=== PATIENT | female | born 1965 | race Caucasian/White ===

== ENCOUNTER 2020-12-03 10:27 | Outpatient (REF) | payer OTHER, SELFPAY ==
[2020-12-06 13:55] LABS: TS Negative Control Passed; TS Panel A 0; TS Panel B 1; TS Positive Control Passed; TSpotTB Negative (SeeBelow)
== END 2020-12-03 10:28 | disposition home or self-care (01) ==
LOC: HO.MANLDS 10:27
PROVIDERS: PCP Physician Assistant; Visit Provider Physician Assistant
DX: Z11.1 Encounter for screening for respiratory tuberculosis (principal)
CPT/HCPCS: 36415; 86481

== ENCOUNTER 2020-12-15 15:08 | Outpatient (REF) | payer OTHER, SELFPAY | END 2020-12-15 15:09 | disposition home or self-care (01) | LOC: HO.MANLDS 15:08 | PROVIDERS: PCP Physician Assistant; Visit Provider Physician Assistant | DX: Z01.84 Encounter for antibody response examination (principal) | CPT/HCPCS: 36415; 86787 ==

== ENCOUNTER 2022-03-12 11:44 | Outpatient (REF) | payer OTHER, SELFPAY ==
[2022-03-12 14:13] LABS: MANUAL DIFF FLAG NO
[2022-03-12 14:22] LABS: Basophils Percent Auto 0.5 % (0-2); Eosinophils Absolute Auto 0.1 X10*3/uL (0.0-0.4); Eosinophils Percent Auto 1.2 % (0-4); Hematocrit 40.4 % (37.0-47.0); Imm Gran Abs Auto 0.02 X10*3/uL (0.00-0.03); Imm Gran Pct Auto 0.2 % (0.0-0.4); Lymphocytes Absolute Auto 1.9 X10*3/uL (1.2-4.9); Lymphocytes Percent Auto 22.7 % (20-40); Mean Corpuscular HGB Conc 32.2 g/dl (31.0-35.0); Mean Corpuscular Hemoglobin 29.1 pg (27.0-33.0); Mean Corpuscular Volume 90.4 fL (80.0-98.0); Mean Platelet Volume 11.7 fL (9.4-12.3); Monocytes Absolute Auto 0.6 X10*3/uL (0.1-1.2); Monocytes Percent Auto 7.1 % (2-11); Neutrophils Absolute Auto 5.6 x10*3/uL (2.0-8.3); Neutrophils Percent Auto 68.3 % (45-73); Platelet Count 271 X10*3/uL (160-400); Red Blood Count 4.47 X10*6/uL (4.20-5.50); Red Cell Distribution Width 13.3 % (11.0-16.0); White Blood Count 8.2 X10*3/uL (4.8-10.8)
[2022-03-12 14:43] LABS: Anion Gap 13 (12-20)
[2022-03-12 14:48] LABS: Carbon Dioxide 25 mmol/L (22-29)
[2022-03-12 14:53] LABS: Alanine Aminotransferase 12 U/L (0-31); Alkaline Phosphatase 76 U/L (39-117); Aspartate Amino Transferase 19 U/L (5-31); Bilirubin Total 0.9 mg/dL (0.0-1.0); Blood Urea Nitrogen 17 mg/dL (9-16); Calcium 9.2 mg/dL (8.4-10.2); Chloride 104 mmol/L (96-108); Cholesterol 217 mg/dL; Estimated Glomerular Filt Rate > 60; Glucose Random 90 mg/dL (60-115); HDL Cholesterol 63 mg/dL; LDL Cholesterol Calculated 140 mg/dl; Potassium 4.4 mmol/L (3.3-5.1); Sodium 138 mmol/L (135-145); Total Protein 6.7 g/dL (6.5-8.0); Triglycerides 74 mg/dL
[2022-03-12 15:10] LABS: Free T4 (Free Thyroxine) 0.93 ng/dL (0.71-1.85); Thyroid Stimulating Hormone 0.43 uIU/mL (0.32-4.0)
== END 2022-03-12 11:45 | disposition home or self-care (01) ==
LOC: HO.MANLDS 11:44
PROVIDERS: Visit Provider Physician Assistant
DX: I10 Essential (primary) hypertension (principal)
CPT/HCPCS: 36415; 80053; 80061; 84439; 84443; 85025

== ENCOUNTER 2024-04-25 11:38 | Outpatient (REF) | payer OTHER, SELFPAY ==
[2024-04-25 13:37] LABS: Appearance Urine Cloudy; Color Urine Yellow; Glucose Urine UA Negative (Negative); Leukocyte Esterase Urine Large (3+) (Negative); Nitrite Urine Positive (Negative); UMIC TRIGGER UACC YES; Urine Blood Trace (Negative); Urine Ketones Negative (Negative); Urine Protein Negative (Neg-Trace)
[2024-04-25 13:42] LABS: Bacteria Urine 4+ (None Seen); RBC Urine 0-2 /HPF (0-2); Squamous Epithelial Cell Urine 0-2 /HPF (0-2); UACC Culture Trigger YES; WBC Urine >50 /HPF (0-5)
--- OUTSIDE RECORDS SUMMARY | 2024-04-25 14:41 | XMS_ITS | Data Portability ---
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) MDM MODERATE MUST MEET 2 OUT OF 3 ELEMENTS: PROBLEMS, DATA OR RISK ELEMENT 1: PROBLEMS ADDRESSED OR 2 OR MORE STABLE CHRONIC ILLNESSES OR OR OR ELEMENT 2: DATA MUST MEET 1 OF 3 CATEGORIES CATEGORY 1: REVIEW OF PRIOR EXTERNAL NOTES, REVIEW OF RESULTS, ORDERING OF EACH TEST, ASSESSMENT REQUIRING INDEPENDENT HISTORIAN OR CATEGORY 2: OR CATEGORY 3: ELEMENT 3: RISK RISK OF COMPLICATIONS AND/OR MORBIDITY OR MORTALITY OF PATIENT MANAGEMENT PROVIDER MUST THOROUGHLY DOCUMENT EACH ELEMENT THAT IS COVERED [email or web address] Not available 07/07/2020 10:35:24 Plan of Treatment Reminders Order Date Submit Date Provider Last Modified By Organization Details Last Modified Time Details Appointments None recorded. Lab urinalysis complete, reflex culture 2023 024 [facility], [address] [place] [address], [address], 4 07:54:22 urinalysis , dipstick 2023 024 [facility], [address] [facility] [facility] [address], [place], [address], 4 11:46:31 CMP, serum or plasma 2022 023 [facility], [address] [place] [address], [address], 3 11:35:15 lipid panel, blood 2022 023 [facility], [address] [facility], [place], [address], 3 11:35:15 CBC w/ auto diff 2022 023 [facility], [address] [facility], [place], [address], 3 11:35:15 TSH + free T4, serum 2022 023 [facility], [address] [facility], [place], [address], 3 11:35:15 CMP, serum or plasma 2020 021 [email or web address] Not available 1 10:33:16 CBC w/ auto diff 2020 021 [email or web address] Not available 1 10:33:16 lipid panel, blood 2020 021 [email or web address] Not available 1 10:33:16 CBC w/ auto diff 2019 020 TRISHA Not available 0 09:00:36 Referral None recorded. Procedures None recorded. Surgeries None recorded. Imaging XR, ribs, unilateral 2019 020 TRISAH Not available 0 15:01:20 electrocar diogram 2019 020 [email or web address] [facility], [address] [facility], [address], [place], [address], 0 12:07:02 XR, chest, 2 view 2019 020 TRISHA Not available 0 14:49:18 Medication Orders sulfametho xazole 800 mg-trimeth oprim 160 mg tablet 2023 025 TRISHA [facility], [address] [place], [address], 5 12:32:47 epinephrin e 0.3 mg/0.3 mL injection, auto-injec tor 2022 023 [email or web address] [facility], [address] [place] [address], [address], 3 08:53:06 valacyclov ir 1 gram tablet 2020 021 jbigda [facility], [address] [place], [address], 3 12:24:12 lisinopril 20 mg tablet 2020 021 rtryba [facility], [address] [place] [address], [address], 1 10:33:16 epinephrin e 0.3 mg/0.3 mL injection, auto-injec tor 2020 021 rtryba [facility], [address] [place], [address], 3 08:53:06 Patient TargetsNo targets recorded. Patient Instructions Encounter Date Encounter Id Patient Instructions Last Modified By Organization Details Last Modified Time 03/30/2019 [id number] learning about high white blood cell counts Not available 03/30/2019 12:03:39 anaphylactic reaction: care instructions Not available 03/30/2019 11:59:14 Reason for Referral None Reported. Results Created Date Observation Date Name Description Value Unit Range Abnormal Flag Note LastModifiedBy Organization Detail LastModifiedTime 03/30/19 20 03/30/2019 martha ojeda am Rate & Rhythm 72 Not Available [facility] [address] [facility] [address], [place], [address], 03/30/2019 11:56:48 03/30/1903/30/2019 elect rocar diogr am QRS 88 Not Available [facility] [address] [facility], [place], [address], 03/30/2019 11:56:48 03/30/19 20 03/30/2019 elect rocar diogr am NV Interval 144 Not Available [facility] [address] [facility], [place], [address], 03/30/2019 11:56:48 03/30/19 20 03/30/2019 elect rocar diogr am QRS Duration 88 Not Available [facility] [address] [facility], [place], [address], 03/30/2019 11:56:48 03/30/19 20 03/30/2019 elect rocar diogr am QT Interval 394/43 1 Not Available [facility] [address] [facility], [place], [address], 03/30/2019 11:56:48 09/28/19 24 09/28/2023 urina lysis , dipst ick Leukocytes Modera te Not Available [address], [place], [address], 09/28/2023 11:42:23 09/28/19 24 09/28/2023 urina lysis , dipst ick Nitrite positi ve Not Available [facility] [address] [facility], [place], [address], 09/28/2023 11:42:23 09/28/19 24 09/28/2023 urina lysis , dipst ick Urobilinogen 1 Not Available [facility] [address] [facility], [place], [address], 09/28/2023 11:42:23 09/28/19 24 09/28/2023 urina lysis , dipst ick Protein Negati ve Not Available [facility] [address] [facility], [place], [address], 09/28/2023 11:42:23 09/28/19 24 09/28/2023 urina lysis , dipst ick pH 6.0 Not Available [facility] [address] [facility] [address], [place], [address], 09/28/2023 11:42:23 09/28/19 24 09/28/2023 urina lysis , dipst ick Blood Small Not Available [facility] [address] [facility] [address], [place], [address], 09/28/2023 11:42:23 09/28/19 24 09/28/2023 urina lysis , dipst ick Specific [place] 1.010 Not Available [facility] [address] [facility] [address], [place], [address], 09/28/2023 11:42:23 09/28/19 24 09/28/2023 urina lysis , dipst ick Ketone Negati ve Not Available [facility] [address] [facility] [address], [place], [address], 09/28/2023 11:42:23 09/28/19 24 09/28/2023 urina lysis , dipst ick Bilirubin Negati ve Not Available [facility] [address] [facility] [address], [place], [address], 09/28/2023 11:42:23 09/28/19 24 09/28/2023 urina lysis , dipst ick Glucose Negati ve Not Available [facility] [address] [facility] [address], [place], [address], 09/28/2023 11:42:23 09/28/19 24 09/28/2023 urina lysis , dipst ick Appearance Cloudy Not Available [facility] [address] [facility] [address], [place], [address], 09/28/2023 11:42:23 09/28/19 24 09/28/2023 urina lysis , dipst ick Color [place] Not Available [facility] [address] [facility] [address], [place], [address], 09/28/2023 11:42:23 03/30/19 20 03/30/2019 XR, chest , 2 view No observ ation record ed. [address], [address], 03/30/2019 15:48:04 03/30/19 20 03/30/2019 XR, ribs, unila teral No observ ation record ed. [address], [address], 03/30/2019 15:48:04 04/03/19 21 04/03/2020 MAMMO , scree jose, bilat eral No observ ation record ed. [facility] [employer] [address] [facility], [place], [address], 04/04/2020 07:54:54 04/06/19 22 04/06/2021 MAMMO , scree jose, digit al, bilat eral No observ ation record ed. [facility] [address] [facility], [place], [address], 04/06/2021 10:57:20 04/16/19 23 04/15/2022 MAMMO , scree jose, digit al, bilat eral No observ ation record ed. [email or web address] [facility] [address] [place] [address], [address], 04/16/2022 13:41:26 04/17/19 25 04/13/2024 CT, coron monica calci um score No observ ation record ed. [facility] [address] [facility] [place], [address], 04/17/2024 16:44:12 Result Notes None recorded. Problems Name Problem SNOMED Code Status Onset Date Resolution Date Notes Provider Name and Address Organization Details Recorded Time Essential hypertensi on 95363927 Active 2017 Not Available [facility] 2 11:57:55 Herpes labialis 6517388 Active 2017 Not Available [facility] 2 11:57:56 Basal cell carcinoma of skin 632467882 Active 2017 Not Available [facility] 2 11:57:55 Acute bronchitis 72496999 Active 2022 SUMAYA SETHI [address] [place] [address], [address], [facility] 3 15:21:00 Vasovagal syncope 013160847 Active 2022 SUMAYA SETHI [address] [place] [address], [address], [facility] 3 16:16:22 Dysuria 74630838 Active 2023 SUMAYA SETHI [address] [place] [address], [address], [facility] 4 11:58:00 Diarrhea 78536176 Active 2023 SUMAYA SETHI [address] [place] [address], [address], [facility] 4 13:16:56 Hyperchole sterolemia 50709518 Active 2024 SUMAYA SETHI [address] [place] [address], [address], [facility] 5 16:44:38 Hyperlipid emia 13688905 Active 2024 SUMAYA SETHI [address] [place] [address], [address], [facility] 5 09:17:24 Problem Notes None recorded. Procedures Surgical History Date Name Laterality Status Provider Name and Address Organization Details Recorded Time 07/02/19 17 Colonoscopy completed Nicole Jaquez [facility] 04/21/2018 16:46:07 11/06/19 16 Most Recent Mammogram completed Nicole Jaquez [facility] 04/21/2018 16:47:01 repair of stress incontinence by suprapubic sling completed SUMAYA SEHTI [address] [facility], [place], [address], [facility] 03/12/2022 11:31:50 Imaging Results Imaging Date Name Status LastModified by Organiz ation Details LastModified Time 03/30/2019 XR, chest, 2 view completed [address], [address], 03/30/2019 15:48:04 03/30/2019 XR, ribs, unilateral completed [address], [address], 03/30/2019 15:48:04 04/03/2020 MAMMO, screening, bilateral completed [facility] [employer] [address] [facility], [place], [address], 04/04/2020 07:54:54 04/06/2021 MAMMO, screening, digital, bilateral completed [facility] [address] [place], [address], 04/06/2021 10:57:20 04/15/2022 MAMMO, screening, digital, bilateral completed [email or web address] [facility] [address] [place] [address], [address], 04/16/2022 13:41:26 04/13/2024 CT, coronary calcium score completed [facility] [address] [facility] [address], [place], [address], 04/17/2024 16:44:12 Procedure Notes None recorded. Medical Equipment None Reported. Allergies Allergen ID Allergen Name Allergen Category Reaction Reaction Severity Criticality Documentation Date Start Date Code Code System Note Provider Name and Address Organization Details Recorded Time 4477 shellfish derived food,medi cation anaphylax is severe Not available 07/07/2020 [id number] SUMAYA ARMENDARIZ [address] [place], [address], [facility] 10:27:54 Medications Name Sig Start Date Stop Date Status Note LastModified by Organization Details LastModified Time doxycycline hyclate 100 mg capsule TAKE 1 CAPSULE BY MOUTH TWICE A DAY 09/27 completed Not Available Not Available Not Available azithromyci n 250 mg tablet TAKE 2 TABLETS BY MOUTH TODAY, THEN TAKE 1 TABLET DAILY FOR 4 DAYS 08/24 completed Not Available Not Available Not Available ibuprofen 800 mg tablet Take 1 tablet 3 times a day by oral route as needed for 10 days. 07/07 completed Not Available Not Available Not Available valacyclovi r 1 gram tablet TAKE 1 TABLET BY MOUTH TWICE A DAY FOR 10 DAYS active Not Available Not Available No t Available epinephrine (Jr) 0.15 mg/0.3 mL injection,a uto-injecto r 0.15 mg SC/IM x1; Info: may repeat dose x1 after 5-15min 03/26 completed Not Available Not Available Not Available atovaquone 250 mg-proguani l 100 mg tablet Take 1 tablet every day by oral route as directed for 2 days, for malaria preventio n, only take one 1 to 2 days prior to arriving in [facility] on. active Not Available Not Available No t Available lisinopril 20 mg tablet TAKE 1 TABLET DAILY active Not Available Not Available No t Available fluorouraci l 5 % topical cream 03/30 completed Not Available Not Available Not Available tretinoin 0.05 % topical cream 03/12 completed Not Available Not Available Not Available sulfamethox azole 800 mg-trimetho prim 160 mg tablet TAKE 1 TABLET BY MOUTH EVERY 12 HOURS FOR 7 DAYS 03/30 completed Not Available Not Available Not Available Imodium A-D 2 mg tablet Take 1 tablet 3 times a day by oral route as needed for 7 days. 2023 active Not Available Not Available Not Avai lable simvastatin 20 mg tablet Take 1 tablet every day by oral route for 30 days. 2024 active Not Available Not Available Not Avai lable hydrochloro thiazide 25 mg tablet Take one tablet twice a day 01/18 completed Not Available Not Available Not Available epinephrine 0.3 mg/0.3 mL injection, auto-inject or USE DIRECTED FOR ANAPHYLAX IS THEN CALL 911 active Not Available Not Available No t Available estradiol 0.01% (0.1 mg/gram) vaginal cream APPLY 1 GM VAGINALLY EVERY TUESDAY AND TUESDAY active Not Available Not Available No t Available methylpredn isolone 4 mg tablets in a dose pack TAKE 6 TABLETS ON DAY 1 DIRECTED ON PACKAGE AND DECREASE BY 1 TAB EACH DAY FOR A TOTAL OF 6 DAYS 08/24 completed Not Available Not Available Not Available nitrofurant oin monohydrate /macrocryst als 100 mg capsule 11/14 completed Not Available Not Available Not Available M-M-R II (PF) 1,000-12,50 0 TCID50/0.5 mL subcutaneou s solution 03/30 completed Not Available Not Available Not Available Afluria Qd 2018- (36 mos up)(PF)60 mcg (15 mcg x4)/0.5 mL IM syringe 03/30 completed Not Available Not Available Not Available Vitals Date Recorded Body height Body mass index (BMI) Body weight Heart rate Oxygen saturation Oxygen saturation in Arterial blood by Pulse oximetry Systolic blood pressure Diastolic blood pressure Provider Name and Address Organization Details Last Updated DateTime 0 168.91 cm 27 kg/m2 65384.7 g 84 /min 99 % 99 % 124 mm[Hg] 80 mm[Hg] Renea Sanderson [facility] 0 11:36:59 Date Recorded Body height Body mass index (BMI) Body weight Oxygen saturation Oxygen saturation in Arterial blood by Pulse oximetry Heart rate Systolic blood pressure Diastolic blood pressure Provider Name and Address Organization Details Last Updated DateTime 1 168.91 cm 26.6 kg/m2 66984.9 3 g 98 % 98 % 70 /min 122 mm[Hg] 80 mm[Hg] Beverly Palmer [facility] 1 10:25:33 Date Recorded Body height Body mass index (BMI) Body weight Oxygen saturation Oxygen saturation in Arterial blood by Pulse oximetry Heart rate Systolic blood pressure Diastolic blood pressure Provider Name and Address Organization Details Last Updated DateTime 3 168.91 cm 27.8 kg/m2 38060.9 5 g 98 % 98 % 71 /min 100 mm[Hg] 70 mm[Hg] Yuly Brown [facility] 3 11:20:16 Date Recorded Body height Body mass index (BMI) Body weight Heart rate Oxygen saturation Oxygen saturation in Arterial blood by Pulse oximetry Systolic blood pressure Diastolic blood pressure Provider Name and Address Organization Details Last Updated DateTime 3 168.91 cm 27.7 kg/m2 65158.0 7 g 69 /min 98 % 98 % 120 mm[Hg] 80 mm[Hg] Regi Montenegro [facility] 3 15:54:02 Date Recorded Body height Body mass index (BMI) Body weight Heart rate Oxygen saturation Oxygen saturation in Arterial blood by Pulse oximetry Systolic blood pressure Diastolic blood pressure Provider Name and Address Organization Details Last Updated DateTime 4 167.64 cm 27.5 kg/m2 75020.5 g 72 /min 98 % 98 % 122 mm[Hg] 72 mm[Hg] Chuck Dinah [facility] 4 11:45:30 Social History Question Answer Notes LastModified by Organizat ion Details LastModified Time Tobacco Smoking Status Never Smoker Not Available [facility] 01/01/2020 03:36:24 What Was The Date Of Your Most Recent Tobacco Screening? 09/28/2023 [email or web address] Information not available 09/28/2023 Do You Or Have You Ever Used Any Other Forms Of Tobacco Or Nicotine? No [email or web address] Information not available 08/24/2022 Sex: Unknown Functional Status None recorded. Mental Status None recorded. Family History Nothing Reported. Medical History No medical history recorded. Gynecological History Statement/Question Response Most Recent Mammogram 11/06/2015 Obstetrics History GPAL:G 0 P 0 0 0 0 Immunizations Vaccine Type Date Status Note Provider Nam e and Address Organization Details Recorded Time zoster recombinant 2 completed Not Available [facility] 11/22/2022 14:05:36 COVID-19, mRNA, LNP-S, PF, 50 mcg/0.5 mL dose 1 completed Not Available [facility] 11/22/2022 14:05:36 COVID-19, mRNA, LNP-S, PF, 50 mcg/0.5 mL dose 1 completed Not Available [facility] 11/22/2022 14:05:36 COVID-19, mRNA, LNP-S, PF, 30 mcg/0.3 mL dose 1 completed Not Available [facility] 11/22/2022 14:05:36 COVID-19, mRNA, LNP-S, PF, 30 mcg/0.3 mL dose 2 completed Not Available [facility] 11/22/2022 14:05:36 MMR 9 completed Not Available [facility] 11/22/2022 14:05:36 MMR 0 completed Not Available [facility] 11/22/2022 14:05:36 influenza, unspecified formulation 0 completed Not Available [facility] 11/22/2022 14:05:36 influenza, unspecified formulation 1 completed Not Available [facility] 11/22/2022 14:05:36 influenza, unspecified formulation 2 completed Not Available [facility] 11/22/2022 14:05:36 Past Encounters Encounter ID Performer Location Encounter Start Date Encounter Closed Date Diagnosis/Indication Diagnosis SNOMED-CT Code Diagnosis ICD10 Code Diagnosis Note [id number] Yasmin Emil [facility] [address] [facility] [address] 11/14/2017 14:59:10 11/14/2017 15:36:53 Essential hypertension 62942922 I10 not well controlled will d/c hctz work on sodium intake weight loss discussed Headache 56351420 R51 likely related to htn [id number] Yasmin Emil [facility] [address] [facility], [place] [address] 01/18/2018 09:59:01 01/18/2018 12:14:21 Essential hypertension 83067597 I10 well controlled with lisin- will continue Headache 42356748 R51 have resolved [id number] Yasmin Emil [facility] [address] [facility] [address] [address] 04/24/2018 09:06:49 04/24/2018 11:25:14 Adult health examination 241593080 Z00.00 had labs at work will fax us Active or passive immunization 105208669 Z23 Body mass index 25-29 - overweight 206400851 Z68.27 Essential hypertension 08787230 I10 well controlled with lisin- will continue [id number] May NEYMAR Stein [facility] [address] [facility] [address], [place] [address] 03/30/2019 11:28:55 03/30/2019 12:07:01 Anaphylaxis 68289263 T78.2XXA Rib pain 613361579 R07.8 1 Leukocytosis 685275611 D 72.829 [id number] SUMAYA SETHI [facility] [address] [facility] [address], [place] [address] 07/07/2020 10:18:59 07/07/2020 11:44:32 Essential hypertension 33876451 I10 stable, will submit refill Anaphylaxi s caused by shellfish 343743342 T78.02XS will fu with refill Herpes labialis 5766258 B00.1 stable [id number] SUMAYA SETHI [facility] [address] [facility] [address] [address] 03/12/2022 11:13:08 03/16/2022 08:37:59 Anaphylaxis caused by shellfish 244467653 T78.02XS will fu with refill Essential hypertension 03361879 I10 stable, will submit refill [id number] SUMAYA SETHI [facility] [address] [facility] [address],[place] [address] 08/24/2022 15:45:43 08/25/2022 09:13:11 Vasovagal syncope 314908624 R55 resolved Essential hypertension 02729393 I10 BP is excellent [id number] SUMAYA SETHI [facility] [address] [facility] [address],[place] [address] 09/28/2023 11:35:04 10/03/2023 09:03:19 Depression screening 332649930 Z13.31 negative Dysuria 07596658 R30.0 will start on medication Health Concerns Section Related Observation LastModified by Organization Detai ls LastModified Time None Recorded Concern Status LastModified by Organization Details LastModified Time None Recorded Advance Directives Directive None Recorded Payers Encounter Date Sequence Insurance Name Policy Number Policy Adame Covered Member ID Adame Member ID Guarantor Name 03/30/2019 1 [employer]) [id number] Anette A Olmedo [id number] Anette A Olmedo 07/07/2020 1 [employer]) [id number] Anette A Olmedo [id number] Antete A Olmedo 03/12/2022 1 [employer]) [id number] Anette A Olmedo [id number] Anette A Olmedo 08/24/2022 1 [employer]) [id number] Anette A Olmedo [id number] Anette A Olmedo 09/28/2023 1 [employer]) [id number] Anette A Olmedo [id number] Anette A Olmedo Notes Date Note Type Note Provider Name and Address Organization Details Recorded Time 0 text/html ate shrimp, developed abdominal cramping, went to the bathroom, nothing came out, started walking again, felt chest pain, tried to go to the bathroom again but nothing came out, went home and collapsed, then woke up and called 911, ambulance came in and did ekg and BP was low pt was in and out of consciousness, developed a rash all over her body, gave epi pen and responded well to this. in ER was given steroid and albuterol because she couldn't breath. she was having diarrhea uncontrollably. they believed she was having an anaphylactic reaction because of her response to epi pen. they also did troponins and everything was normal. she had a skin treatment and had a reaction. since the incident she is still having rib pain on the right side. she had a cxr in the ER and it was normal. 12 system ROS negative except where noted above May NEYMAR Stein [address] [facility], [place], [address], [facility] 03/30/2019 12:05:31 1 text/html medication fu BP: today in the office the patient BP is 122/80 the patient is doing well on the BP medication with no side effects and no adjustment of their medications needed today at the appointment well-controlled on medication denies chest pain, sob, ankle swelling, orthopnea, palpitations the patient is otherwise stable will give patient labs for recheck before fu appt SUMAYA SETHI [address] [place], [address], [facility] 07/07/2020 10:35:36 3 text/html f/u medication check HTN: today in the office the patient BP is 100/70 L arm sitting (takes her lisinopril every other day due to low low BP, will just adjust her medication)the patient is doing well on the BP medication with no side effects and no adjustment of their medications needed today at the appointmentwell-control led on medicationdenies chest pain, sob, ankle swelling, orthopnea, palpitations needs epipen SUMAYA SETHI [address] [place], [address], [facility] 03/12/2022 11:38:14 3 text/html ER F/U the patient reports that she lost consciousnessas per patient she was outside drinking alcohol most of the day at a family event, not enough water and also having diarrhea and emesis > most likely related to her vasovagal syncope related to dehydrationher BP was very lowwas on lisinopril d/c since her BP was very lowBP is appropriate ER evaluation was unremarkablewill have her monitor BP at home to see if it starts to go up again otherwise no other symptoms SUMAYA SETHI [address] [place], [address], [facility] 08/24/2022 16:20:25 4 text/html c/o urinary frequency the patient is having urinary symptoms including frequency, burning and feeling of incomplete voidingthe patient is doing well otherwisecurrently taking AZOwill send out urine SUMAYA SETHI [address] [place], [address], [place] [facility] 09/28/2023 12:13:16 OBGyn Episode No OBEpisode recorded.
--- OUTSIDE RECORDS SUMMARY | 2024-04-25 14:41 | XMS_ITS | Continuity of Care Document ---
Author Organization [facility] Address [address] [place] [address]- Care Team Providers Care Athletics Director Name Role Phone Elliot Rosario DO Primary Care Physician [phone] Encounter 04/13/24 - 04/20/24 [facility] [address], [address] [place] [address]- Attending Physician: Sudha Mcmanus Admitting Physician: Sudha Mcmanus Referring Physician: Sudha Mcmanus Encounter Type: OutPatient One Time Allergies, Adverse Reactions, Alerts Substance Criticality Severity Reaction Reaction Severity Status shellfish Anaphylaxis Active Medications Estrace Vaginal Cream 0.1 mg/g = 1 Gm, Vaginally, Every Tuesday and , # 42.5 Gm, 4 Refills, Maintenance, 07/06/23 9:42:00 AM EDT, [facility]/pharmacy #[id number], Partial fill upon patient request if the prescription is for a schedule II opioid drug., 170, cm, 07/23/22 15:51:00 EDT, Height, 80.3, kg, 11/17/21 8:58:00 EDT, Dry Weight Start Date: 07/06/23 Status: Ordered Quantity: 42.5 Unit: g Repeat number: 5 Lisinopril = 10 mg, By Mouth, Daily, 0 Refills, Maintenance, 10/21/20 6:14:00 PM EDT, Partial fill upon patientrequest if the prescription is for a schedule II opioid drug. Start Date: 10/21/20 Status: Ordered Repeat number: 1 Results Radiology Reports * Exam Date Time Procedure Performing Provider Status 04/13/24 2:[address] Heart W/O Dye [place] , Er ic; Auth (Verified) Notes: (CT Heart W/O Dye Salvador Eval) Reason For Exam: Z82.49 FAMILY HX HD RESULT: CT Heart W/O Dye Salvador Eval CT Heart W/O Dye Salvador Eval INDICATION: Reason: Z82.49 FAMILY HX HD; Clinical Question(s): Other:. Female of age 58 , race White COMPARISON: None TECHNIQUE: Coronary artery Calcium Scoring. After a localizing senior oracle dba image was obtained, an ECG-gated noncontrast exam was obtained of the heart in late diastole. The region of interest was limited to the heart in order to optimize image quality. Weight-based protocol using automatic tube modulation was used to optimize exposure parameters. A [employer] 64 scanner was used, with Agatston scoring performed using TRAFI (CatchThatBus) web-based software. This procedure is not being performed on thispatient for preoperative evaluation for low-risk surgery within 30 days. CTDIvol Body: 8.33 mGy, DLP Body: 133 mGy*cm. FINDINGS: Coronary Calcium Scoring Summary: Left Main: Score 0.615 . LAD: Score 280. Circumflex: Score 59.4 . Right: Score 31.4 . Ramus: Score 0 . TOTAL: Score 371. Non-coronary Findings: In the upper inner quadrant of the left breast there is a focal asymmetry measuring 1.3 x 2.1 cm and 24 Hounsfield units (series 2, image 13), indeterminate in nature without visible calcification. IMPRESSION: 1. There is a focal asymmetry in the left breast upper inner quadrant. Recommend correlation with mammography and ultrasound if needed. No comparison studies are available at this institution. 2. The Agatston coronary calcium score is 371. The Multi-Ethnic Study of Atherosclerosis (SANCHEZ) trial on-line calculator can be used to determine the probability of having coronary calcification and the calcium score percentile for subjects basedon age, gender and race/ethnicity who are free of clinical cardiovascular disease and treated diabetes: http://www.sanchez-nhlbi.org/Calcium/input.aspx Within this cohort, the probability of having coronary calcification is 34 %. The observed calcium score is at the 98th percentile. An actionable message (Yellow) has been communicated via the [facility] system on 04/17/2024 9:46 AM, Message ID [id number]. I have personally reviewed the images and I agree with this report. WSN: [id number] Ordering Physician: Sudha Barrett Dictated By: Jorge A Bustamante MD Dictated Date/Time: 04/17/24 9:46 am Reviewed By: Fracisco Lowe MD Signed By: Fracisco Lowe MD Signed Date/Time: 04/17/24 9:51 am Transcribed By: CHUCK Transcribed Date/Time: 04/17/24 9:46 am Social History Social History Type Response Smoking Status Never (less than 100 in lifetime) entered on: 07/16/20 Sex Sex Representation Female (finding) Implantable Device List Procedure Provider Procedure Date Device Type Site Transvaginal Tape Cysto Estee Mckee MD 11/06/20 Unkn own Urethra Device Identifier Serial Number Lot or Batch Number Manufacturing Date Expiration Date Distinct Identification Code MRI Safety Implantable Status Assigning Authority [id number] Unknown [id number] Unknown 07/29/23 Unknown Unknown Active GS1 Patient Care team information Care Team Personnel Name: Elliot Rosario DO Position: Reference Physician Member Role: PCP Address: [address] [place] [address] Internal Medicine [address] Telecom: Care Team Related Persons Name: LUNA SWARTZ Insurance Providers Guarantor name: ERICA SWARTZ Health Plan Information #: 1 Payer: [employer]ER[employer]: [employer]MENT EXAM Member Number: [id number] Policy Number: NA Group Number: NA Health Plan Information #: 2 Payer: TIERNEY: ADV[employer]ED PAYMENT EXAM Member Number: [id number] Policy Number: NA Group Number: [id number]
== END 2024-04-25 11:39 | disposition home or self-care (01) ==
LOC: HO.MANLDS 11:38
PROVIDERS: Visit Provider Physician Assistant
DX: N39.0 Urinary tract infection, site not specified (principal); B96.20 Unspecified Escherichia coli [E. coli] as the cause of diseases classified elsewhere
CPT/HCPCS: 81001; 87086; 87088; 87186

== ENCOUNTER 2024-05-28 07:27 | Outpatient (REF) | payer OTHER, SELFPAY | END 2024-05-28 07:28 | disposition home or self-care (01) | LOC: HO.MAMMO 07:27 | PROVIDERS: PCP Internal Medicine; Visit Provider Internal Medicine | DX: Z12.31 Encounter for screening mammogram for malignant neoplasm of breast (principal) | CPT/HCPCS: 77063; 77067 ==

== ENCOUNTER → 2024-05-28 07:30 | Outpatient (BNV) | payer OTHER, SELFPAY | PROVIDERS: PCP Internal Medicine; Visit Provider Internal Medicine | DX: Z12.31 Encounter for screening mammogram for malignant neoplasm of breast (principal) | CPT/HCPCS: 77063; 77067 ==

== ENCOUNTER 2024-05-28 12:28 | Outpatient (REF) | payer OTHER, SELFPAY ==
--- OUTSIDE RECORDS SUMMARY | 2024-05-28 14:07 | XMS_ITS | Continuity of Care Document ---
Author Organization [facility] Address [address] [place] [address] [place] [address] Assessment No assessment recorded. Plan of Treatment Reminders Order Date Submit Date Provider Last Modified By Organization Details Last Modified Time Details Appointments SDV 2024 11:45A SUMAYA BABB Not available Not available Not available Lab vitamin D, 25-hydrox y, total, serum 2024 025 [facility], [address] [place] [address], [id number], 05/28/2024 12:17:41 iron + TIBC + ferritin, serum 2024 025 [facility], [address] [place] [address], [id number], 05/28/2024 12:17:41 vitamin B12 + folate, serum or blood 2024 025 [facility], [address] [place] [address], [id number], 05/28/2024 12:17:41 TSH + free T4, serum 2024 025 [facility], [address] [place] [address], [id number], 05/28/2024 12:17:41 CBC w/ auto diff 2024 025 [facility], [address] [place] [address], [id number], 05/28/2024 12:17:41 CMP, serum or plasma 2024 025 [facility], [address] [place] [address], [id number], 05/28/2024 12:17:41 hemoglobi n A1c, QN, blood 2024 025 [facility], [address] [place] [address], [id number], 05/28/2024 12:17:41 urinalysi s complete, reflex culture 2024 025 [facility], [address] [place] [address], [id number], 05/28/2024 12:18:32 Referral None recorded. Procedures None recorded. Surgeries None recorded. Imaging None recorded. Medication Orders None recorded. Patient TargetsNo targets recorded. Patient InstructionsNo instructions recorded. Reason for Referral None Reported. Problems Name Problem SNOMED Code Status Onset Date Resolution Date Notes Provider Name and Address Organization Details Recorded Time Essential hypertensi on 93304494 Active 2017 Not Available [facility] 2 11:57:55 Herpes labialis 8722003 Active 2017 Not Available [facility] 2 11:57:56 Basal cell carcinoma of skin 534557130 Active 2017 Not Available [facility] 2 11:57:55 Vasovagal syncope 344664108 Active 2022 SUMAYA SETHI [address] [place], [address], [facility] 3 16:16:22 Dysuria 75698016 Active 2023 SUMAYA SETHI [address] [place], [address], [facility] 4 11:58:00 Diarrhea 30776595 Active 2023 SUMAYA SETHI [address] [place], [address], [facility] 4 13:16:56 Hyperchole sterolemia 40832239 Active 2024 SUMAYA SETHI [address] [place], [address], [facility] 5 16:44:38 Hyperlipid emia 37605616 Active 2024 SUMAYA SETHI [address] [place] [address], [phone], [facility] 5 09:17:24 Fatigue 83816562 Active 2024 SUMAYA SETHI [address] [place] [address], [phone], [facility] 5 12:05:23 Problem Notes None recorded. Procedures Surgical History Date Name Laterality Status Provider Name and Address Organization Details Recorded Time 07/02/19 17 Colonoscopy completed [facility] 04/21/2018 16:46:07 11/06/19 16 Most Recent Mammogram completed [facility] 04/21/2018 16:47:01 repair of stress incontinence by suprapubic sling completed SUMAYA SETHI [address] [place] [address], [phone], [facility] 03/12/2022 11:31:50 Imaging Results None recorded. Procedure Notes None recorded. Medical Equipment None Reported. Allergies Allergen ID Allergen Name Allergen Category Reaction Reaction Severity Criticality Documentation Date Start Date Code Code System Note Provider Name and Address Organization Details Recorded Time 4477 shellfish derived food,medi cation anaphylax is severe Not available 07/07/2020 29517 UNK SUMAYA SETHI [address] [place] [address], [phone], [facility] 1 10:27:54 Medications Name Sig Start Date Stop [...] to 2 days prior to [facility] on. active Not Available Not Available No [...] MOUTH EVERY 12 HOURS FOR 7 DAYS 05/28 completed Not Available Not Available Not Available Imodium A-D 2 mg tablet Take 1 tablet 3 times a day by oral route as needed for 7 days. 2023 active Not Available Not Available Not Avai lable simvastatin 20 mg tablet TAKE 1 TABLET BY MOUTH EVERY DAY FOR 30 DAYS active Not Available Not Available No t Available hydrochloro thiazide 25 mg tablet Take one [...] Available Not Available Not Available Afluria Qd 2019-20 (36 mos up)(PF)60 mcg (15 mcg x4)/0.5 mL IM syringe 03/30 completed Not Available Not Available Not Available Vitals Date Recorded Body height Body mass index (BMI) Body weight Heart rate Oxygen saturation Oxygen saturation in Arterial blood by Pulse oximetry Systolic blood pressure Diastolic blood pressure Provider Name and Address Organization Details Last Updated DateTime 5 167.64 cm 27.4 kg/m2 90753.7 g 72 /min 98 % 98 % 120 mm[Hg] 72 mm[Hg] SUMAYA SETHI [address] [place] [address], [phone] [place] [address] Internal Medicine 5 11:58:17 Social History Question Answer Notes LastModified by Organizat ion Details LastModified Time Tobacco Smoking Status Never Smoker Not Available [facility] 01/01/2020 03:36:24 What Was The Date Of Your Most Recent Tobacco Screening? 09/28/2023 [email or web address] Information not available 09/28/2023 Do You Or Have You Ever Used Any Other Forms Of Tobacco Or Nicotine? No [email or web address] Information not available 08/24/2022 Sex: Unknown Functional Status None recorded. Mental Status None recorded. Family History Nothing Reported. Medical History No medical history recorded. Gynecological History Statement/Question Response Most Recent Mammogram 11/06/2015 Obstetrics History GPAL:G 0 P 0 0 0 0 Immunizations Vaccine Type Date Status Note Provider Nam e and Address Organization Details Recorded Time zoster recombinant 2 completed Not Available [facility] 11/22/2022 14:05:36 COVID-19, mRNA, LNP-S, PF, 50 mcg/0.5 mL dose 1 completed Not Available [facility] 11/22/2022 14:05:36 COVID-19, mRNA, LNP-S, PF, 50 mcg/0.5 mL dose 1 completed Not Available [facility] 11/22/2022 14:05:36 COVID-19, mRNA, LNP-S, PF, 30 mcg/0.3 mL dose 1 completed Not Available [facility] 11/22/2022 14:05:36 COVID-19, mRNA, LNP-S, PF, 30 mcg/0.3 mL dose 2 completed Not Available [facility] 11/22/2022 14:05:36 MMR 9 completed Not Available [facility] 11/22/2022 14:05:36 MMR 0 completed Not Available [facility] 11/22/2022 14:05:36 influenza, unspecified formulation 0 completed Not Available [facility] 11/22/2022 14:05:36 influenza, unspecified formulation 1 completed Not Available [facility] 11/22/2022 14:05:36 influenza, unspecified formulation 2 completed Not Available [facility] 11/22/2022 14:05:36 Past Encounters Encounter ID Performer Location Encounter Start Date Encounter Closed Date Diagnosis/Indication Diagnosis SNOMED-CT Code Diagnosis ICD10 Code Diagnosis Note [id number] SUMAYA SETHI [facility] [address] [facility] [place] [facility] [place] [address] 05/28/2024 11:39:14 05/28/2024 13:06:52 Fatigue 33822875 R53.83 agreed to full test Essential hypertension 55346104 I10 BP is excellent Hypercholesterolemia 136 22424 E78.2 hold statin until lab work returns Health Concerns Section Related Observation LastModified by Organization Detai ls LastModified Time None Recorded Concern Status LastModified by Organization Details LastModified Time None Recorded Payers Encounter Date Sequence Insurance Name Policy Number Policy Adame Covered Member ID Adame Member ID Guarantor Name 05/28/2024 1 [employer] ([employer]) [id number] Anette Corcoran [id number] Anette Corcoran Notes Date Note Type Note Provider Name a nd Address Organization Details Recorded Time 05/28/2024 text/html c/o fatigue patient feeling run down with heaviness in bilateral LEthe patient states it started about a few weeks ago the patient reports that's she stopped the statin two days agowondering if it is a side effect to the med may also have a cold or UTIthe patient reports fatigue, heaviness feeling, feeling generally unwell, feels really cold recommended lab work, 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
[2024-05-28 17:58] LABS: MANUAL DIFF FLAG NO
[2024-05-28 18:16] LABS: Basophils Percent Auto 0.2 % (0-2); Eosinophils Percent Auto 0.1 % (0-4); Hematocrit 38.9 % (37.0-47.0); Hemoglobin 13.1 g/dl (12.0-16.0); Imm Gran Pct Auto 0.7 % (0.0-0.4); Lymphocytes Absolute Auto 0.9 X10*3/uL (1.2-4.9); Lymphocytes Percent Auto 6.1 % (20-40); Mean Corpuscular HGB Conc 33.7 g/dl (31.0-35.0); Mean Corpuscular Hemoglobin 31.4 pg (27.0-33.0); Mean Corpuscular Volume 93.3 fL (80.0-98.0); Mean Platelet Volume 12.8 fL (9.4-12.3); Monocytes Absolute Auto 1.4 X10*3/uL (0.1-1.2); Monocytes Percent Auto 9.8 % (2-11); Neutrophils Absolute Auto 11.9 x10*3/uL (2.0-8.3); Neutrophils Percent Auto 83.1 % (45-73); Platelet Count 161 X10*3/uL (160-400); Red Blood Count 4.17 X10*6/uL (4.20-5.50); Red Cell Distribution Width 13.2 % (11.0-16.0); White Blood Count 14.3 X10*3/uL (4.8-10.8)
[2024-05-28 18:20] LABS: Appearance Urine Cloudy; Color Urine Yellow; Glucose Urine UA Negative (Negative); Leukocyte Esterase Urine Large (3+) (Negative); Nitrite Urine Positive (Negative); UMIC TRIGGER UACC YES; Urine Blood Small (1+) (Negative); Urine Ketones 15 mg/dL (Negative); Urine Protein Trace mg/dL (Neg-Trace)
[2024-05-28 18:43] LABS: Iron 13 mcg/dL (30-160); Percent Iron Saturation 6 % (15-50); Total Iron Binding Capacity 224 mcg/dL (228-428); Unsaturated Iron Binding 211 ug/dL
[2024-05-28 18:54] LABS: Bacteria Urine 4+ (None Seen); Hyaline Casts Urine 0-2 /LPF (0-2); RBC Urine 0-2 /HPF (0-2); Squamous Epithelial Cell Urine 0-2 /HPF (0-2); UACC Culture Trigger YES; WBC Urine >50 /HPF (0-5)
[2024-05-28 18:58] LABS: Ferritin 117 ng/mL (10-250); T4 Thyroxine 6.1 ug/dL (4.5-12.0); Thyroid Stimulating Hormone 0.46 uIU/mL (0.32-4.0)
[2024-05-29 07:45] LABS: Estimated Average Glucose 111 mg/dL; Hemoglobin A1c % 5.5 % (<6.0)
[2024-06-02 06:03] LABS: VITAMIN D (1,25 OH) D3 38 pg/mL; Vit D (1,25-Dihydroxy) Total 38 pg/mL (18-72); Vitamin D (1,25 OH) D2 <8 pg/mL
== END 2024-05-28 12:29 | disposition home or self-care (01) ==
LOC: HO.MANLDS 12:28
PROVIDERS: Visit Provider Physician Assistant
DX: R53.83 Other fatigue (principal); Z13.1 Encounter for screening for diabetes mellitus
CPT/HCPCS: 36415; 81001; 82652; 82728; 83036; 83540; 84436; 84443; 85025; 87086